=== PATIENT | female | born 1945 | race Caucasian/White ===

== ENCOUNTER 2018-10-06 06:33 | Day surgery (SDC) | payer MEDICARE, SELFPAY ==
[2018-10-06 06:42] VITALS: BP 129/71; PULSE 58; RESP 16; TEMP 35; O2SAT 98
[2018-10-06] MEDS: Lactated Ringers 1,000 ML 80 ML IV (07:21)
[2018-10-06] MEDS: Lidocaine 1% Multi-Dose 50 ML VIAL (07:48)
[2018-10-06] MEDS: Bupivacaine 0.5% Pres-Free 30 ML VIAL (07:48)
[2018-10-06] MEDS: Dexamethasone 4 MG/ML VIAL (08:01)
--- NOTE | 2018-10-06 08:20 | W.PM.DSUDISC ---
Discharge Plan Disposition Patient Disposition: HOME Condition: Good Discharge Details Attending Provider: Ulices Reis Primary Care Provider: Kyler Cuellar Home Meds and New Rx's Prescriptions: No Action No Known Home Meds RF: 0 Discharge Instructions Activity:: Activity as Tolerated Remove Dressings/Wound Care:: Do Not Remove Shower/Bathe:: Cover Diet:: As Tolerated Discharge Orders Discharge Orders: Discharge Order (Routine); Ordered 10/06/18 Ordered By: Ulices Reis DS: Diagnosis Discharge Diagnosis (1) Hammer toe of right foot: Start date: 10/06/18 Start time: 08:21 Status: Acute Asessment and Plan: arthroplasties 2nd digits haydee. with 0.062K-wire fixation (2) Hammer toe of left foot: Start date: 10/06/18 Start time: 08:21 Status: Acute Asessment and Plan: as above
--- NOTE | 2018-10-06 11:08 | ROE_ITS ---
REPORT OF OPERATIVE PROCEDURE DATE OF PROCEDURE October 06, 2018 PREOPERATIVE DIAGNOSIS Symptomatic second digit hammer toes bilaterally. POSTOPERATIVE DIAGNOSIS Symptomatic second digit hammer toes bilaterally. PROCEDURE Arthroplasty second toes bilaterally with 0.062 K-wire fixation. SURGEON Ulices Reis D.P.M. ANESTHESIA Monitored Anesthesia Care with local block of the second toes bilaterally utilizing a total of 10 cc of a 50:50 mixture 1% lidocaine plain, 0.5% Marcaine plain, equally distributed amongst the two digit s. ANESTHESIA PROVIDER Zuleika Gonsales CRNA OPERATIVE INDICATIONS Lenka is a 73-year-old female with pain associated with contraction of the second toes interfering wi th shoe gear, ambulation, daily activities. Nonsurgical treatments have failed to provide sufficient relief of symptoms. The patient understands the risks and complications of surgery pertaining to ethan n, scarring infection, stiffness of joints, over correction, under correction, shortening of the seco nd toes, recurrence of hammertoe deformity, and potential for revisional procedures. Informed consent has been obtained. No promises made to the final outcome of surgery. REPORT OF OPERATION Lenka was brought to the Operative Suite, placed in the supine position where both feet were prepped and draped in the usual sterile podiatric fashion. Anesthesia being obtained, attention was directed simultaneously to the second toes on both feet. Both feet were exsanguinated, and a well-padded ankle tourniquet inflated 250 mmHg. Attention was directed initially to the right second toe, where two c onverging semielliptical incisions were placed over the PIPJ. The skin wedge was excised. The identic al procedure was then performed on the second toe of the left foot. Soft tissue mobilization was then performed simultaneously on each digit. Transverse tenotomy capsulotomy was then performed at the [facility]. The medial and lateral collaterals were released simultaneously second toes bilaterally. The hea d of the proximal phalanx was then delivered into the wound. Degenerative changes were noted through the articular surface of the second proximal phalangeal heads bilaterally. With double action bone cu tting forceps the heads were resected at their surgical necks. All roughened bony edges were rasped s mooth bilaterally. Relaxation of the second toe was appreciated. The toe was fixated in retrograde f ashion with a 0.062 K-wire ending at the base of the proximal phalanx. There was no contracture at th e MPJ level, and I did not feel I needed to go across that joint. Irrigation was performed bilaterall y. The extensor tendons were repaired end-to-end with simple interrupted sutures #3-0 Vicryl bilatera lly. The skin was then coapted with simple interrupted suture #4-0 Nylon. 2 mg of dexamethasone phos phate was then infused at the base of the second toes bilaterally. Xeroform, gauze fluff, compression dressings were applied. Tourniquet was released on the left foot at 22 minutes and on the right ladi t at 24 minutes. The patient left the Operating Room with vital signs stable, vascular status intact. Sharp and sponge counts were correct. She will be followed by myself in the office next week. CC: Kyler Cuellar M.D.
== END 2018-10-06 09:30 | disposition home or self-care (01) ==
PROVIDERS: PCP Internal Medicine; Visit Provider Podiatrist
PROC: (CPT 28285; principal; 2018-10-06 07:30)
DX: M20.42 Other hammer toe(s) (acquired), left foot (principal); M20.41 Other hammer toe(s) (acquired), right foot; M79.675 Pain in left toe(s); M79.674 Pain in right toe(s)
CPT/HCPCS: 28285; J0690; J1100; J1885; J2405

== ENCOUNTER 2019-08-28 11:49 | Outpatient (REF) | payer MEDICARE, SELFPAY ==
[2019-08-28 22:30] LABS: Anion Gap 7.4 mmol/L (3-11); BUN 18 mg/dL (7-18); CO2 30.6 mmol/L (21.0-32.0); CREATININE 0.74 mg/dL (0.55-1.02); Calcium 9.2 mg/dL (8.5-10.1); Calculated LDL 79 mg/dL (<100); Chloride 101 mmol/L (98-107); Cholesterol 169 mg/dL (<200); Glucose 90 mg/dL (74-106); HDL Cholesterol 83 mg/dL (40-60); Potassium 4.5 mmol/L (3.5-5.1); Sodium 139 mmol/L (136-145); Triglyceride 39 mg/dL (<150)
== END 2019-08-28 12:09 ==
LOC: NCHCN 11:49
PROVIDERS: PCP Internal Medicine; Visit Provider Internal Medicine
DX: Z13.6 Encounter for screening for cardiovascular disorders (principal)
CPT/HCPCS: 80048; 80061

== ENCOUNTER 2022-02-26 20:38 | Outpatient (REF) | payer MEDICARE, SELFPAY ==
[2022-02-26 21:27] LABS: HCT 41.6 % (36.0-46.0); HGB 13.7 g/dL (11.2-15.7); MCH 29.5 pg (27.0-33.0); MCHC 32.9 % (32.0-36.0); MCV 90 fL (80-95); MPV 10.9 fL (8.0-11.0); Platelet Count 485 10^3/uL (130-400); RBC 4.64 10^6/uL (3.93-5.22); RDW 14.7 % (11.7-14.6); RDW-SD 48.3 fL; WBC 7.03 10^3/uL (4.4-10.8)
[2022-02-26 21:35] LABS: ALT 21 U/L (14-59); AST 23 U/L (15-37); Albumin 3.9 g/dL (3.4-5.0); Alkaline Phosphatase 85 U/L (46-116); Anion Gap 7.3 mmol/L (3-11); BUN 20 mg/dL (7-18); Bilirubin, Total 0.3 mg/dL (0.2-1.0); CO2 29.7 mmol/L (21.0-32.0); CREATININE 0.7 mg/dL (0.55-1.02); Chloride 101 mmol/L (98-107); Glucose 88 mg/dL (74-106); Potassium 4.5 mmol/L (3.5-5.1); Sodium 138 mmol/L (136-145); Total Protein 6.8 g/dL (6.4-8.2)
[2022-02-26 22:03] LABS: Prothrombin Time 10.3 sec (9.3-11.0)
== END 2022-02-26 20:39 | disposition home or self-care (01) ==
LOC: NCHCN 20:38
PROVIDERS: PCP Internal Medicine; Visit Provider Nurse Practitioner Family
DX: I48.91 Unspecified atrial fibrillation (principal); Z79.01 Long term (current) use of anticoagulants
CPT/HCPCS: 80053; 85027; 85610

== ENCOUNTER 2022-04-01 12:23 | Outpatient (REF) | payer MEDICARE, SELFPAY ==
[2022-04-01 15:04] LABS: Abs Immature Grans 0.01 10^3/uL (0.0-0.06); Absolute Basophil Count 0.08 10^3/uL (0.0-0.2); Absolute Monocyte Count 0.43 10^3/uL (0.1-0.8); Absolute Neutrophil Count 3.29 10^3/uL (1.2-6.7); Basophils % 1.6; HCT 40.4 % (36.0-46.0); HGB 13.4 g/dL (11.2-15.7); Immature Grans % 0.2; Lymphocytes % 23.5; MCH 29.1 pg (27.0-33.0); MCHC 33.2 % (32.0-36.0); MCV 88 fL (80-95); MPV 10.4 fL (8.0-11.0); Monocytes % 8.4; Neutrophils % 64.3; Platelet Count 509 10^3/uL (130-400); RBC 4.61 10^6/uL (3.93-5.22); RDW 14.5 % (11.7-14.6); RDW-SD 46.7 fL; WBC 5.11 10^3/uL (4.4-10.8)
== END 2022-04-01 12:24 | disposition home or self-care (01) ==
LOC: NCHCN 12:23
PROVIDERS: PCP Internal Medicine; Visit Provider Nurse Practitioner Family
DX: D69.6 Thrombocytopenia, unspecified (principal)
CPT/HCPCS: 85025

== ENCOUNTER 2022-09-22 02:50 | Outpatient (CLI) | payer MEDICARE, SELFPAY ==
[2022-09-22 14:28] LABS: Vitamin D 25 Total 38.7 ng/mL (30-100)
[2022-09-22 14:31] LABS: Ferritin 47 ng/mL (8-252); Vitamin B12 627 pg/mL (193-986)
== END 2022-09-22 02:51 | disposition home or self-care (01) ==
LOC: LBO 02:50
PROVIDERS: PCP Internal Medicine; Visit Provider Internal Medicine Sleep Medicine
DX: R53.83 Other fatigue (principal); M25.562 Pain in left knee; M81.0 Age-related osteoporosis without current pathological fracture; G47.61 Periodic limb movement disorder; D69.6 Thrombocytopenia, unspecified
CPT/HCPCS: 36415; 82306; 82607; 82728

== ENCOUNTER 2024-11-21 17:08 | Outpatient (REF) | payer MEDICARE, SELFPAY ==
[2024-11-21 22:07] LABS: HCT 41.7 % (36.0-46.0); HGB 13.7 g/dL (11.2-15.7); MCH 28.9 pg (27.0-33.0); MCHC 32.9 % (32.0-36.0); MCV 88 fL (80-95); MPV 10.6 fL (8.0-11.0); Platelet Count 509 10^3/uL (130-400); RBC 4.74 10^6/uL (3.93-5.22); RDW 14.3 % (11.7-14.6); WBC 7.23 10^3/uL (4.4-10.8)
[2024-11-21 22:32] LABS: Anion Gap 6.2 mmol/L (3-11); BUN 19 mg/dL (7-18); CO2 30.8 mmol/L (21.0-32.0); CREATININE 0.8 mg/dL (0.55-1.02); Calcium 9.5 mg/dL (8.5-10.1); Chloride 104 mmol/L (98-107); Estimated GFR 75.37 (mL/min/1.73m2); Glucose 90 mg/dL (74-106); Potassium 4.3 mmol/L (3.5-5.1); Sodium 141 mmol/L (136-145); TSH (W/Ref FT4) 5.76 uIU/mL (0.36-3.74)
[2024-11-21 22:52] LABS: FREE T4 0.77 ng/dL (0.76-1.46)
== END 2024-11-21 17:09 | disposition home or self-care (01) ==
LOC: NCHCN 17:08
PROVIDERS: PCP Internal Medicine; Visit Provider Nurse Practitioner Family
DX: R42 Dizziness and giddiness (principal)
CPT/HCPCS: 80048; 85027; 84439; 84443

== ENCOUNTER 2025-03-13 14:54 | Outpatient (REF) | payer MEDICARE, SELFPAY ==
[2025-03-13 16:21] LABS: Calculated LDL 85 mg/dL (<100); Cholesterol 163 mg/dL (<200); HDL Cholesterol 69 mg/dL (>or=50); Triglyceride 47 mg/dL (<150)
== END 2025-03-13 14:55 | disposition home or self-care (01) ==
LOC: NCHCN 14:54
PROVIDERS: PCP Internal Medicine; Visit Provider Internal Medicine
DX: Z00.00 Encounter for general adult medical examination without abnormal findings (principal)
CPT/HCPCS: 80061

== ENCOUNTER 2025-04-16 16:55 | Outpatient (REF) | payer MEDICARE, SELFPAY ==
[2025-04-16 20:51] LABS: ESR 1 mm/hr (0-30)
[2025-04-17 17:47] LABS: CRP, High Sensitivity <0.34 mg/L (See Note)
== END 2025-04-16 16:56 | disposition home or self-care (01) ==
LOC: NCHCN 16:55
PROVIDERS: PCP Internal Medicine; Visit Provider Internal Medicine
DX: Q15.9 Congenital malformation of eye, unspecified (principal)
CPT/HCPCS: 85652; 86141

== ENCOUNTER 2025-05-08 20:50 | Outpatient (REF) | payer MEDICARE, SELFPAY ==
[2025-05-10 09:10] LABS: Lyme Ab w Rflx to Lyme Confirm Negative (Negative)
== END 2025-05-08 20:51 | disposition home or self-care (01) ==
LOC: NCHCN 20:50
PROVIDERS: PCP Internal Medicine; Visit Provider Internal Medicine
DX: R50.9 Fever, unspecified (principal)
CPT/HCPCS: 86618